=== PATIENT | female | born 1995 | race Caucasian/White ===

== ENCOUNTER 2016-12-08 13:26 | Emergency (ER) | payer OTHER ==
[~2016-12-08] VITALS: Ht 165.1 cm; Wt 51.1 kg
[~2016-12-08 13:26] MED LIST: BACTRIM,SEPT1 TABLET PO; BENTYL10 MG PO; MILK OF MAGN PO; PYRIDIUM100 MG PO; VENTOLIN HFA18 GM IH; XULANE PATCH1 EACH TD; ZANTAC150 MG PO; ZOFRAN4 MG PO
[2016-12-08 16:37] VITALS: BP 113/88
== END 2016-12-08 16:38 | disposition home or self-care (01) ==
LOC: EME 13:26 → RME 15:28
DX: S01.511A Laceration without foreign body of lip, initial encounter (principal); W45.8XXA Other foreign body or object entering through skin, initial encounter
CPT/HCPCS: 99281; 99284